=== PATIENT | male | born 1975 | race African-American/Black ===

== ENCOUNTER 2023-12-19 11:35 | Emergency (ER) | payer MEDICAID, OTHER ==
[~2023-12-19] VITALS: Ht 175.3 cm; Wt 115.0 kg
[2023-12-19 11:38] VITALS: O2SAT 95
[2023-12-19] MEDS: HYDROCODONE/ACETAMINOPHEN 5/325MG TABLET PO NR (12:23)
[2023-12-19] MEDS: KETOROLAC 30MG/ML VIAL IM NR (12:23)
[2023-12-19] MEDS ORDERED: HYDR-4001 MT (14:13)
[2023-12-19] MEDS ORDERED: NAPR-681 PO (14:13)
[2023-12-19 14:30] VITALS: BP 135/89; PULSE 86; RESP 19; TEMP 98
== END 2023-12-19 15:17 | disposition home or self-care (01) ==
LOC: ER 11:35
DX: S00.83XA Contusion of other part of head, initial encounter (principal); S59.092A Other physeal fracture of lower end of ulna, left arm, initial encounter for closed fracture; M25.512 Pain in left shoulder; W18.39XA Other fall on same level, initial encounter; Y93.89 Activity, other specified; Y92.89 Other specified places as the place of occurrence of the external cause; Y99.8 Other external cause status
CPT/HCPCS: 73030; 73090; 73110; 73120; 70450; 70486; 29125; 96372; 99285; J1885; Z7610